=== PATIENT | male | born 1995 | race Caucasian/White ===

== ENCOUNTER 2017-11-03 01:59 | Emergency (ER) | payer OTHER ==
[2017-11-03 02:17] VITALS: BP 100/70; PULSE 72; O2SAT 100
[2017-11-03] MEDS ORDERED: XYLOCAINE 2% HCL 20 ML MDV IJ ONE (02:30)
--- NOTE | 2017-11-03 02:32 | ERPHSYRPT ---
- History of Present Illness Time Seen by Provider: 11/03/17 02:15 Source: patient Exam Limitations: clinical condition Patient Subjective Stated Complaint: Closed a pocket knife on his left hand pinky finger and caused an approximately a 1 cm laceration Triage Nursing Assessment: Pt A&O x3, admitted that he has been drinking and he was messing with a pocket knife and closed it on his left pinky and caused approximately a 1 cm laceration, bleeding is minimal, pulse normal, vitals wnl, pt doesn't appear to be in any distress, Physician History: PATIENT SUSTAINED LACERATION TO TIP OF HIS LEFT SMALL FINGER WHILE CLOSING A POCKET KNIFE. Occurred: just prior to arrival Method of Injury: incised Quality: constant Severity of Pain-Max: mild Severity of Pain-Current: mild Extremities Pain Location: other: left Modifying Factors: Improves With: movement Associated Symptoms: none Allergies/Adverse Reactions: No Known Drug Allergies Allergy (Verified 11/03/17 02:17) Home Medications: No Reportable Medications [No Reported Medications] 11/03/17 [History] Hx Tetanus, Diphtheria Vaccination/Date Given: No - Review of Systems Constitutional: No Fever, No Chills Musculoskeletal: Injury - Past Medical History Pertinent Past Medical History: No - Past Surgical History Past Surgical History: No - Social History Smoking Status: Current every day smoker How long have you smoked: 11 years Drug Use: marijuana Patient Lives Alone: No - Nursing Vital Signs Nursing Vital Signs: Initial Vital Signs Temperature 98.0 F 11/03/17 02:05 Pulse Rate 72 11/03/17 02:05 Blood Pressure 100/70 11/03/17 02:05 O2 Sat by Pulse Oximetry 100 11/03/17 02:05 Pain Scale Pain Intensity 0 - Physical Exam General Appearance: alert Hand Exam: soft tissue tenderness (THERE IS A 6MM LACERATION TIP OF LEFT SMALL FINGER VOLAR RADIAL ASPECT. DISTAL TO NAIL FOLD, NO EVIDENCE OF FOREIGN BODY.) SpO2: 100 Oxygen Delivery: Room Air Procedures - Laceration/Wound Repair Left Finger Wound Location: Left (SMALL FINGER) Wound Length (cm): 0.7 Wound's Depth, Shape: superficial, linear Wound Explored: clean Irrigated: Yes Hibiclens Prep: Yes Anesthesia: digital block, 2% Lidocaine Volume Anesthetic (ccs): 2 Wound Repaired With: sutures Suture Size/Type: 5-0, ethilon Number of Sutures: 3 Sterile Dressing Applied?: Yes Ordered Tests: Medication Summary Generic Name Dose Route Start Last Admin Trade Name Freq PRN Reason Stop Dose Admin Diphtheria/Tetanus/Acell Pertussis 0.5 ml 11/03/17 02:32 Adacel Vial IM 11/03/17 02:33 .ONCE ONE Lidocaine HCl 2 ml 11/03/17 02:30 Xylocaine 2% Hcl 20 Ml Mdv IJ 11/03/17 02:31 STAT ONE - Progress Progress Note: 11/03/17 02:35 GIVEN ADACEL 0.5ML IM Counseled pt/family regarding: diagnosis, need for follow-up - Departure Time of Disposition: 02:45 Departure Disposition: Home Clinical Impression: LACERATION LEFT SMALL FINGER Condition: Stable Critical Care Time: No Referrals: BLUE CAR MD [Primary Care Provider] - Additional Instructions: TYLENOL OR MOTRIN NEEDED FOR PAIN. HAVE STITCHES REMOVED AT 7 DAYS. WATCH FOR SIGNS OF INFECTION REDNESS, SWELLING OR DRAINAGE.
[2017-11-03] MEDS ORDERED: Adacel Vial IM ONE (02:33)
[2017-11-03] MEDS: Adacel Vial IM ONE (02:33)
== END 2017-11-03 03:02 | disposition home or self-care (01) ==
LOC: ED 01:59
PROC: 0HQGXZZ Repair Left Hand Skin, External Approach (ICD-10-PCS; principal; 2017-11-03)
DX: S61.217A Laceration without foreign body of left little finger without damage to nail, initial encounter (principal); W26.0XXA Contact with knife, initial encounter
CPT/HCPCS: 12001; 90471; 90715; 99283

== ENCOUNTER 2022-11-01 18:35 | Emergency (ER) | payer OTHER ==
[2022-11-01] MEDS ORDERED: XYLOCAINE 1% HCL 20 ML MDV IJ ONE (18:48)
[2022-11-01] MEDS ORDERED: XYLOCAINE 1% HCL 20 ML MDV ONE (18:48)
[2022-11-01] MEDS ORDERED: BACIGUENT PACKET TP ONE (18:48)
[2022-11-01] MEDS ORDERED: BACIGUENT PACKET ONE (19:01)
[2022-11-01 19:09] VITALS: BP 131/72; PULSE 103; O2SAT 100
--- NOTE | 2022-11-01 19:14 | ERPHSYRPT ---
- History of Present Illness Time Seen by Provider: 11/01/22 19:10 Source: patient Exam Limitations: no limitations Patient Subjective Stated Complaint: Pt was working on his motorcycle when he stabbed his left hand with a knife and it entered on the lateral side between t he thumb and the index finger causing a 2cm laceration and exited in the palm of his hand Triage Nursing Assessment: Pt brought to the ER by his , vitals wnl, rates pain as 6/10, 2 cm laceration to his lateral side of left hand, pulses normal, cap refill normal, denies any other issues Physician History: Pt was working on his motorcycle when he stabbed his left hand with a knife and it entered on the lateral side between the thumb and the index finger causing a 2cm laceration and exited in the palm of his hand Timing/Duration: today Severity: mild Associated Symptoms: denies symptoms Allergies/Adverse Reactions: No Known Drug Allergies Allergy (Verified 11/01/22 19:09) Home Medications: No Reportable Medications [No Reported Medications] 11/03/17 [History] Hx Tetanus, Diphtheria Vaccination/Date Given: Yes (2017) Travel Risk - International Travel Have you traveled outside of the country in past 3 weeks: No - Coronavirus Screening Are you exhibiting any of the following symptoms?: No Close contact with a COVID-19 positive Pt in past 14-21 Days: No - Vaccine Status Have you recieved a Covid-19 vaccination: No - Review of Systems Constitutional: No Symptoms Eyes: No Symptoms Ears, Nose, & Throat: No Symptoms Respiratory: No Symptoms Cardiac: No Symptoms Abdominal/Gastrointestinal: No Symptoms Genitourinary Symptoms: No Symptoms Musculoskeletal: No Symptoms Skin: Other (left hand puncture wound) Neurological: No Symptoms Psychological: No Symptoms Endocrine: No Symptoms - Past Medical History Pertinent Past Medical History: No - Past Surgical History Past Surgical History: No - Social History Smoking Status: Current every day smoker How long have you smoked: 11 years Exposure to second hand smoke: Yes Drug Use: none Patient Lives Alone: No - Nursing Vital Signs Nursing Vital Signs: Initial Vital Signs Temperature 99.2 F 11/01/22 18:51 Pulse Rate 103 H 11/01/22 18:51 Blood Pressure 131/72 11/01/22 18:51 O2 Sat by Pulse Oximetry 100 11/01/22 18:51 Pain Scale Pain Intensity 6 - Physical Exam General Appearance: no apparent distress Eye Exam: PERRL/EOMI Ears, Nose, Throat Exam: normal ENT inspection Neck Exam: normal inspection Respiratory Exam: normal breath sounds Cardiovascular Exam: regular rate/rhythm Gastrointestinal/Abdomen Exam: soft Back Exam: normal inspection Extremity Exam: normal inspection Neurologic Exam: alert, oriented x 3 Skin Exam: normal color, laceration (2 cms laceration left 1st ungal area, 0.5 cm wound inbetween thumb and index finger) SpO2 Interpretation: normal SpO2: 100 O2 Delivery: Room Air Procedures - Laceration/Wound Repair Left Volar Hand Wound Location: Left, hand Wound Length (cm): 2 Wound's Depth, Shape: superficial Wound Explored: clean Irrigated: Yes Hibiclens Prep: Yes Anesthesia: local, 1% Lidocaine Volume Anesthetic (ccs): 3 Wound Debrided: minimal Wound Repaired With: sutures Suture Size/Type: 3-0, nylon Number of Sutures: 2 Layer Closure?: No Sterile Dressing Applied?: Yes Splint Applied?: No Sling Applied?: No - Course Nursing assessment & vital signs reviewed: Yes Ordered Tests: Active Orders 24 hr Category Date Time Status Sutures STAT Care 11/01/22 19:09 Active Wound Care STAT Care 11/01/22 18:47 Active Medication Summary Discontinued Medications Generic Name Dose Route Start Last Admin Trade Name Estrellita PRN Reason Stop Dose Admin Bacitracin Zinc 0.9 each 11/01/22 18:48 11/01/22 19:01 Bacitracin Packet 1 Each Pckt TP 11/01/22 18:49 0.9 each STAT ONE Administration Bacitracin Zinc Confirm 11/01/22 19:01 Bacitracin Packet 1 Each Pckt Administered 11/01/22 19:02 Dose 1 each .ROUTE .STK-MED ONE Lidocaine HCl 10 ml 11/01/22 18:48 11/01/22 18:55 Lidocaine Hcl 1% 20 Ml Mdv 20 Ml Ml IJ 11/01/22 18:49 10 ml STAT ONE Administration Lidocaine HCl Confirm 11/01/22 18:48 Lidocaine Hcl 1% 20 Ml Mdv 20 Ml Ml Administered 11/01/22 18:49 Dose 10 ml .ROUTE .STK-MED ONE - Progress Progress: improved Counseled pt/family regarding: diagnosis, need for follow-up (for suture removal in 7 days) Medical Desision Making - Risk of complications Minimal Risk: Minimal risk of morbidity - Departure Departure Disposition: Home Clinical Impression: Laceration of left hand without complication, excluding fingers Qualifiers: Encounter type: initial encounter Qualified Code(s): S61.412A - Laceration without foreign body of left hand, initial encounter Condition: Stable Critical Care Time: No Referrals: HAMMAD AMOS [ACTIVE STAFF] - Follow up/PCP as directed Instructions: Wound Care (DC), Laceration Repair With Stitches (DC) Additional Instructions: Sutures removal in 7 days Discharge/Care Plan LISA ALONSO was seen on 11/01/22 in the Emergency Room. The patient was counseled regarding Diagnosis,Lab results, Imaging studies, need for follow up and when to return to the Emergency Room. Prescriptions given: Discharge Note I have spoken with the patient and/or caregivers. I have explained the patient's condition, diagnosis and treatment plan based on the information available to me at this time. I have answered the patient's and/or caregiver's questions and addressed any concerns. The patient and/or caregivers have as good understanding of the patient's diagnosis, condition and treatment plan as can be expected at this point. The vital signs have been stable. The patient's condition is stable and appropriate for discharge from the emergency department. The patient will pursue further outpatient evaluation with the primary care physician or other designated or consulting physician as outlined in the discharge instructions. The patient and/or caregivers are agreeable to this plan of care and follow-up instructions have been explained in detail. The patient and/or caregivers have received these instruction. The patient/and or caregivers are aware that any significant change in condition or worsening of symptoms should prompt an immediate return to this or the closest emergency department or call 911. LISA ALONSO was seen on 11/01/22 n the Emergency Room. At that time you were treated for an emergent condition, during your visit Laboratory, Radiology and/or other procedures may have been ordered. It is very important that you follow-up with your Primary Care Physician within the next 24-48 hours to review your Emergency Room visit and the final results of testing that was or dered. Some test results such as Urine Cultures, Blood Cultures, and other cultures if ordered will not be finalized for 24-48 hours. If you do not have a Primary Care Provider please call the medical records department at [phone] ext [phone] to obtain a copy of your results or you may sign into our patient portal to obtain these results by visiting us @ [email or web address] and completing the following steps: 1. Click on the Patient Portal link 2. Click the Patient Self Enrollment Link to complete the enrollment form and entering your 3. Once the enrollment form is completed you will receive an email with a temporary ID and password at the email address you provided. 4. Next choose a user name and password. Your user name must be at least 4 cesar cters long and your password must be at least 4 characters long. 5. Choose a security question from the list and provide your answer to the question. If you already have signed into the Health Portal you may access your Health Care Information 13/01 by the following steps: 1. Login to our website @ [email or web address] 2. Enter your original user name and password. FAQS The [facility] Health Portal is an online tool that contains your Lab Results, Radiology Reports, Visit History, Discharge Instructions and Health Summary Lab and Radiology Results will not be available for 72 hours on the portal. The Portal is a secure site, passwords are encryted and URLs are re-written so they cannot be copied and pasted. You and authorized family members are the only ones who can access your Portal. Also there is a timeout feature that protects your information if you leave the Portal page open. If you have technical difficulty please use the Contact Us link on the page this will allow you to submit any questions you have regarding the Portal or you may contact the Medical Record Department at [phone] ext [phone].
== END 2022-11-01 19:27 | disposition home or self-care (01) ==
LOC: ED 18:35
DX: S61.412A Laceration without foreign body of left hand, initial encounter (principal); Z72.0 Tobacco use; Z20.828 Contact with and (suspected) exposure to other viral communicable diseases
CPT/HCPCS: 12001; 96372; 99283; A4570; A9270-GY